=== PATIENT | female | born 1975 | race African-American/Black ===

== ENCOUNTER 2017-09-06 14:36 | Outpatient (CLI) | payer MEDICAID ==
--- NOTE | 2017-09-10 13:22 | MMO ---
BILATERAL SCREENING MAMMOGRAM: Date: 09/06/17 HISTORY: Screening. COMPARISON: Mammograms from 2017 and 2013. TECHNIQUE: Bilateral screening CC and MLO mammograms, as well as cleavage view, performed. This patient's mammogram was interpreted with the assistance of computer-aided detection. FINDINGS: There are scattered fibroglandular densities. No suspicious mass, architectural distortion, or microc alcifications. There are benign calcifications in left breast. IMPRESSION: BIRADS 2: Benign Finding(s) Continued annual mammographic screening is recommended. POS: JAGURA
== END 2017-09-06 14:37 | disposition home or self-care (01) ==
LOC: SCSMAMMO 14:36
PROVIDERS: ATTEND Nurse Practitioner Family
DX: Z12.31 Encounter for screening mammogram for malignant neoplasm of breast (principal)
CPT/HCPCS: 77067

== ENCOUNTER 2019-08-24 07:07 | Observation (INO) | payer SELFPAY ==
[2019-08-24 08:00] LABS: #Eosinphils 0.1 thou/uL (0.0-0.7); #Lymphocytes 1.8 thou/uL (1.20-3.40); #Monocytes 0.5 thou/uL (0.11-0.59); #Neutrophils 6.1 thou/uL (1.40-6.50); %Basophils 0.5 % (0.0-1.0); %Eosinophils 1.2 % (0.0-10.0); %Lymphocytes 21.5 % (21.0-51.0); %Monocytes 5.5 % (0.0-10.0); %Neutrophils 71.3 % (42.0-75.0); Hemoglobin 13.5 g/dL (12.0-16.0); Mean Corpuscular HGB CONC 33.6 g/dL (32.0-36.0); Mean Corpuscular Hemoglobin 25.8 pg (27.0-31.0); Mean Corpuscular Volume 76.6 fL (78.0-98.0); Mean Platelet Volume 8.8 fL (7.4-10.4); Platelet Count 299 thou/uL (130-400); RBC Distribution Width 13.1 % (11.5-14.5); Red Blood Cell (RBC) Count 5.23 mill/uL (4.20-5.40); White Blood Cell (WBC) Count 8.5 thou/uL (4.8-10.8)
[2019-08-24 08:19] LABS: Acetaminophen Less than 6.0 mcg/mL (10.0-30.0); Alcohol Less than 10 mg/dL (Less than 10); Salicylate Less than 8.0 mg/dL (15.0-30.0)
[2019-08-24 08:21] LABS: ALT (SGPT) 7 U/L (8-55); AST (SGOT) 12 U/L (5-34); Albumin 3.7 g/dL (3.5-5.0); Alcohol Less than 10 mg/dL (Less than 10); Alkaline Phosphatase 55 U/L (40-110); Anion Gap 10 mmol/L (10-20); BUN (Urea Nitrogen) 7 mg/dL (7.0-18.7); Bilirubin, Total 0.9 mg/dL (0.2-1.2); Calc. Creatinine Clearance 0 mL/min (70-130); Calcium 9.1 mg/dL (7.8-10.44); Carbon Dioxide 24 mmol/L (22-29); Chloride 106 mmol/L (98-107); Estimated GFR-MDRD 86; Globulin 3.2 g/dL (2.4-3.5); Glucose 99 mg/dL (70-105); Potassium 3.4 mmol/L (3.5-5.1); Protein, Total 6.9 g/dL (6.0-8.3); Sodium 137 mmol/L (136-145)
[2019-08-24 08:27] LABS: Amphetamine Not Detected (NotDetected); Barbiturates Screen Not Detected (NotDetected); Benzodiazepine Screen Not Detected (NotDetected); Cocaine Metabolite Screen Not Detected (NotDetected); Medtox Control Line Valid? VALID (VALID); Medtox Reader # READER 1; Methadone Not Detected (NotDetected); Methamphetamine Not Detected (NotDetected); Opiate Screen Not Detected (NotDetected); Oxycodone Screen Not Detected (NotDetected); Phencyclidine (PCP) Not Detected (NotDetected); THC/Cannabinoid Screen Detected (NotDetected); Tricyclic Screen Not Detected (NotDetected)
[2019-08-24 09:20] LABS: BHCG - Serum Negative (NEGATIVE); Pregs Control Background? CLEAR/WHITE (CLR/WHITE); Pregs Control Bar Appear? YES (CONTROL BAR)
[2019-08-24 09:22] LABS: Bilirubin Negative (Negative); Blood, Urine Negative (Negative); Clarity Clear (Clear); Glucose, Urine (Dipstick) Normal (Negative); Ketone, Urine Negative (Negative); Leukocyte Negative Leu/uL (Negative); Nitrite Negative (Negative); Protein, Urine (Dipstick) Negative (Neg-Trace); Specific Gravity, Urine 1.013 (1.002-1.036); Urobilinogen Normal mg/dL (Less than 2); pH, Urine 6.5 (5.0-9.0)
--- NOTE | 2019-08-24 11:01 | HP ---
PRIMARY CARE PHYSICIAN: Unknown. CHIEF COMPLAINT: Altered mental status. HISTORY OF PRESENT ILLNESS: Ms. Patel is a 44-year-old female who has a history of hypertension, anxiety, and depression. She was found by her in the morning basically unresponsive and lethargic. There was an empty bottle of Flexeril at the bedside. And apparently there was what they call a suicide note. This was given to the police and the patient's called EMS and she was brought to the emergency room. It is assumed that she took a full bottle of Flexeril in the suicide attempt. Apparently, she was just recently according to the ER records and essentially no other history is obtainable. By the time I saw the patient, she is arousable, but lethargic. She is basically squirming around in the bed and will not answer any questions. Apparently, Poison Control was called and it was communicated that if she did in fact take the Flexeril that she would need to be monitored for at least 8 to 12 hours. No specific treatment was recommended with the exception of checking aspirin and acetaminophen repeat level in about 2 hours from the time of her current presentation. REVIEW OF SYSTEMS: Unobtainable due to the patient being confused. PAST MEDICAL HISTORY: Taken from the emergency room records and includes hypertension, anxiety, depression, bipolar disorder, and schizophrenia. PAST SURGICAL HISTORY: It is noted in the ER records that she has had a hysterectomy. ALLERGIES: TO BACTRIM AND STEROIDS. FAMILY HISTORY: Unobtainable. SOCIAL HISTORY: Also unobtainable other than she is apparently recently . CURRENT MEDICATIONS: Taken from the ER records includes cyclobenzaprine as well as hydrochlorothiazide 50 mg daily. PHYSICAL EXAMINATION: GENERAL: She is bit lethargic and drowsy. She is well developed and well nourished. VITAL SIGNS: Blood pressure was 163/110, heart rate 68, respiratory rate of 12, and temperature is 99.1. HEENT: Her pupils are reactive, though she currently has a mask on in place. NECK: There is no adenopathy, no bruits. LUNGS: Essentially clear to auscultation. There is no wheezing, no rales, no rhonchi. CARDIOVASCULAR: She has a normal S1 and S2. There is no S3 or S4. No murmurs, clicks, or rubs. ABDOMEN: Obese, soft, nontender, and nondistended. Positive for bowel sounds. No rebound or guarding. EXTREMITIES: There is no edema, no redness, no erythema. NEUROLOGIC: She is essentially moving all extremities. LABORATORY RESULTS: White blood cell count is 8.5, hemoglobin 13.5, hematocrit is 40, and platelet count was 299. Sodium 137, potassium 3.4, chloride is 106, CO2 is 24, BUN is 7, creatinine 0.86, and glucose is 99. Urinalysis was essentially negative and urine drug screen was positive for cannabinoids. The aspirin level was 8 and Tylenol level was less than 6. ASSESSMENT: This is a 44-year-old female who presents to the ER with some altered mental status presumably in the suicide attempt due to an overdose of Flexeril. She will be placed in observation. We will place her on maintenance IV fluids. We will place her on telemetry monitoring in case there is some evidence of ectopy and re-evaluate her in the next 12 to 24 hours and hopefully get some additional history at that time. And also we will consult [facility] once she is medically cleared. Job ID: [id number]
[2019-08-24] MEDS ORDERED: Ondansetron ODT 4 MG TAB PO PRN (11:44)
[2019-08-24] MEDS ORDERED: Ondansetron PF 4 MG/2 ML Vial IVP PRN (11:44)
[2019-08-24] MEDS ORDERED: hydrALAZINE 20 MG/ML VIAL SLOW IVP PRN (11:44)
[2019-08-24 12:13] LABS: Acetaminophen Less than 6.0 mcg/mL (10.0-30.0); Salicylate Less than 8.0 mg/dL (15.0-30.0)
[2019-08-24 17:14] LABS: Acetaminophen Less than 6.0 mcg/mL (10.0-30.0); Salicylate Less than 8.0 mg/dL (15.0-30.0)
[2019-08-24] MEDS: Sodium Chloride 0.9% 1,000 ML IV SCH (17:23)
[2019-08-25 04:21] LABS: #Basophils 0.1 thou/uL (0.0-0.2); #Eosinphils 0.2 thou/uL (0.0-0.7); #Lymphocytes 2.6 thou/uL (1.20-3.40); #Monocytes 0.6 thou/uL (0.11-0.59); #Neutrophils 6.6 thou/uL (1.40-6.50); %Basophils 0.6 % (0.0-1.0); %Eosinophils 1.5 % (0.0-10.0); %Lymphocytes 26.3 % (21.0-51.0); %Monocytes 5.7 % (0.0-10.0); %Neutrophils 65.8 % (42.0-75.0); Hemoglobin 12.6 g/dL (12.0-16.0); Mean Corpuscular HGB CONC 33.7 g/dL (32.0-36.0); Mean Corpuscular Hemoglobin 25.9 pg (27.0-31.0); Mean Corpuscular Volume 77.1 fL (78.0-98.0); Mean Platelet Volume 10.1 fL (7.4-10.4); Platelet Count 255 thou/uL (130-400); RBC Distribution Width 13.3 % (11.5-14.5); Red Blood Cell (RBC) Count 4.86 mill/uL (4.20-5.40)
[2019-08-25 04:48] LABS: Anion Gap 10 mmol/L (10-20); BUN (Urea Nitrogen) 9 mg/dL (7.0-18.7); Calc. Creatinine Clearance 107 mL/min (70-130); Calcium 8.5 mg/dL (7.8-10.44); Carbon Dioxide 26 mmol/L (22-29); Chloride 108 mmol/L (98-107); Estimated GFR-MDRD 88; Glucose 95 mg/dL (70-105); Potassium 3.9 mmol/L (3.5-5.1); Sodium 140 mmol/L (136-145)
[2019-08-25] MEDS: Sodium Chloride 0.9% 1,000 ML IV SCH (06:34)
[2019-08-25 06:37] VITALS: BMI 29.6
[2019-08-25] MEDS ORDERED: Enoxaparin Sodium 40 MG/0.4 ML SYRINGE SC SCH (09:00)
[2019-08-25 12:19] LABS: Acetaminophen Less than 6.0 mcg/mL (10.0-30.0); Alcohol Less than 10 mg/dL (Less than 10); Salicylate Less than 8.0 mg/dL (15.0-30.0)
[2019-08-25] MEDS ORDERED: Acetaminophen 325 MG TAB PO PRN (13:05)
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
[2019-08-25] MEDS: Gabapentin 300 MG CAP PO SCH ×2 (15:52→21:40)
[2019-08-25] MEDS ORDERED: LURASIDONE HCL 40 MG PO SCH (21:00)
[2019-08-25] MEDS ORDERED: busPIRone HCl 10 MG TAB PO SCH (21:00)
[2019-08-26 02:22] VITALS: BP 147/82; TEMP 98.1
[2019-08-26] MEDS ORDERED: Hydrochlorothiazide 25 MG TAB PO SCH (09:00)
[2019-08-26] MEDS ORDERED: Atomoxetine Hcl 40 MG PO SCH ×2 (09:00)
[2019-08-26] MEDS ORDERED: Bupropion 150 MG SR TAB PO SCH (09:00)
--- NOTE | 2019-09-02 17:01 | EKG ---
Test Reason : Blood Pressure : / mmHG Vent. Rate : 076 BPM Atrial Rate : 076 BPM P-R Int : 182 ms QRS Dur : 090 ms QT Int : 394 ms P-R-T Axes : 035 017 023 degrees QTc Int : 443 ms Normal sinus rhythm Septal infarct , age undetermined Abnormal ECG Confirmed by RENE BABIN ([id number]), news assignment editor BOOGIE QUICK ([id number]) on 09/02/2019 5:00:36 PM Referred By: Confirmed By:RENE BABIN
== END 2019-08-26 00:55 | disposition short-term general hospital (02) ==
LOC: ERS 07:07 → T4-B 11:36 → 2NO 12:33
PROVIDERS: ADMIT Internal Medicine; ATTEND Internal Medicine
DX: T48.1X2A Poisoning by skeletal muscle relaxants [neuromuscular blocking agents], intentional self-harm, initial encounter (principal); R41.82 Altered mental status, unspecified; F31.9 Bipolar disorder, unspecified; I10 Essential (primary) hypertension; F41.9 Anxiety disorder, unspecified; F20.9 Schizophrenia, unspecified; Z79.899 Other long term (current) drug therapy; Z88.2 Allergy status to sulfonamides; Z88.8 Allergy status to other drugs, medicaments and biological substances
CPT/HCPCS: 36415; 51701; 80048; 80053; 80306; 80307; 81003; 84703; 85025; 93005; 96360; 96361; G0378

== ENCOUNTER 2019-11-05 10:36 | Emergency (ER) | payer SELFPAY ==
[2019-11-05] MEDS ORDERED: Acetaminophen 500 MG TAB ONE (11:13)
[2019-11-05] MEDS ORDERED: Cyclobenzaprine 10 MG TAB ONE (11:13)
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
== END 2019-11-05 13:06 | disposition home or self-care (01) ==
LOC: ERS 10:36
DX: M54.2 Cervicalgia (principal); M54.5 Low back pain; R20.2 Paresthesia of skin; I10 Essential (primary) hypertension; F41.9 Anxiety disorder, unspecified; F31.9 Bipolar disorder, unspecified; F20.9 Schizophrenia, unspecified; V43.62XA Car passenger injured in collision with other type car in traffic accident, initial encounter
CPT/HCPCS: 70450; 72100; 72125

== ENCOUNTER 2019-12-09 06:45 | Inpatient (IN) | payer OTHER, SELFPAY ==
[2019-12-09 07:54] LABS: Bilirubin Negative (Negative); Blood, Urine Negative (Negative); Clarity Turbid (Clear); Glucose, Urine (Dipstick) Normal (Negative); Ketone, Urine Negative (Negative); Leukocyte Negative Leu/uL (Negative); Nitrite Negative (Negative); Protein, Urine (Dipstick) Negative (Neg-Trace); Specific Gravity, Urine 1.013 (1.002-1.036); Urobilinogen Normal mg/dL (Less than 2); pH, Urine 6.5 (5.0-9.0)
[2019-12-09 08:02] LABS: Amphetamine Not Detected (NotDetected); Barbiturates Screen Not Detected (NotDetected); Benzodiazepine Screen Not Detected (NotDetected); Cocaine Metabolite Screen Not Detected (NotDetected); Medtox Control Line Valid? VALID (VALID); Medtox Reader # READER 4; Methadone Not Detected (NotDetected); Methamphetamine Not Detected (NotDetected); Opiate Screen Detected (NotDetected); Oxycodone Screen Not Detected (NotDetected); Phencyclidine (PCP) Not Detected (NotDetected); THC/Cannabinoid Screen Not Detected (NotDetected); Tricyclic Screen Not Detected (NotDetected)
[2019-12-09 08:05] LABS: #Eosinphils 0.1 thou/uL (0.0-0.7); #Lymphocytes 1.8 thou/uL (1.20-3.40); #Monocytes 0.6 thou/uL (0.11-0.59); #Neutrophils 6.5 thou/uL (1.40-6.50); %Basophils 0.3 % (0.0-1.0); %Eosinophils 1.5 % (0.0-10.0); %Lymphocytes 19.9 % (21.0-51.0); %Monocytes 6.4 % (0.0-10.0); %Neutrophils 71.9 % (42.0-75.0); Hemoglobin 13.7 g/dL (12.0-16.0); Mean Corpuscular HGB CONC 33.4 g/dL (32.0-36.0); Mean Corpuscular Hemoglobin 25.8 pg (27.0-31.0); Mean Corpuscular Volume 77.2 fL (78.0-98.0); Mean Platelet Volume 8.3 fL (7.4-10.4); Platelet Count 270 thou/uL (130-400); RBC Distribution Width 12.6 % (11.5-14.5); Red Blood Cell (RBC) Count 5.32 mill/uL (4.20-5.40)
[2019-12-09 08:10] LABS: BHCG - Serum Negative (NEGATIVE); Pregs Control Background? CLEAR/WHITE (CLR/WHITE); Pregs Control Bar Appear? YES (CONTROL BAR)
[2019-12-09 08:25] LABS: Acetaminophen Less than 6.0 mcg/mL (10.0-30.0); Alcohol Less than 10 mg/dL (Less than 10); Salicylate Less than 8.0 mg/dL (15.0-30.0)
--- NOTE | 2019-12-09 11:38 | PDOC.HHP ---
Hospitalist HPI - History of Present Illness intentional overdose Hospitalist Results - Labs Result Diagrams: 12/09/19 07:50 Lab results: WBC 9.0 thou/uL (4.8-10.8) 12/09/19 07:50 Hgb 13.7 g/dL (12.0-16.0) 12/09/19 07:50 Hct 41.0 % (36.0-47.0) 12/09/19 07:50 MCV 77.2 fL (78.0-98.0) L 12/09/19 07:50 Plt Count 270 thou/uL (130-400) 12/09/19 07:50 Neutrophils % 71.9 % (42.0-75.0) 12/09/19 07:50 Creatine Kinase 96 U/L (29-168) 12/09/19 07:50 Urine Ketones Negative mg/dL (Negative) 12/09/19 07:12 Urine Blood Negative (Negative) 12/09/19 07:12 Urine Nitrite Negative (Negative) 12/09/19 07:12 Ur Leukocyte Esterase Negative Kb/uL (Negative) 12/09/19 07:12
[2019-12-09 12:45] LABS: ALT (SGPT) 7 U/L (8-55); AST (SGOT) 15 U/L (5-34); Albumin 3.6 g/dL (3.5-5.0); Alkaline Phosphatase 53 U/L (40-110); Anion Gap 17 mmol/L (10-20); BUN (Urea Nitrogen) 8 mg/dL (7.0-18.7); Bilirubin, Total 1.2 mg/dL (0.2-1.2); Calc. Creatinine Clearance 0 mL/min (70-130); Calcium 8.8 mg/dL (7.8-10.44); Carbon Dioxide 20 mmol/L (22-29); Chloride 105 mmol/L (98-107); Estimated GFR-MDRD 88; Globulin 3.5 g/dL (2.4-3.5); Glucose 70 mg/dL (70-105); Potassium 3.7 mmol/L (3.5-5.1); Protein, Total 7.1 g/dL (6.0-8.3); Sodium 138 mmol/L (136-145)
[2019-12-09] MEDS ORDERED: Sodium Chloride 0.9% 1,000 ML IV SCH (13:15)
--- NOTE | 2019-12-09 17:11 | HP ---
PCP: Unknown. CHIEF COMPLAINT: Intentional overdose. HISTORY OF PRESENT ILLNESS: The patient is a 44-year-old female with past medical history of hypertension, anxiety, depression, and suicide attempt. This morning she sent text messages to her friends stating that she wanted to end her life. She was later found unresponsive by family with pill bottles open next to her. What is suspected as her taking was an unknown amount of Abilify, morphine and trazodone. Around 6 a.m., EMS gave her 0.5 mg of Narcan IV and placed a nasal trumpet. The patient had a previous attempt of suicide in August with Flexeril. When I saw her in the ER, she was arousable to painful stimuli, but very lethargic still. Poison Control was called and notified. Poison Control stated that morphine and Abilify can cause [employer] depression and to monitor her airway management. They stated to try Narcan if necessary and order serial labs such as Tylenol, aspirin, CMP, CBC, alcohol and EKG. They also stated to monitor her for 12 hours minimally. Today in the ER, they completed lab work and the urinalysis. She was administered no medications. PAST MEDICAL HISTORY: Hypertension, anxiety, depression, bipolar, schizophrenia. PAST SURGICAL HISTORY: Hysterectomy. ALLERGIES: BACTRIM, CORTISONE, AND SULFA. MEDICATIONS: Unable to obtain at this time. SOCIAL HISTORY: The patient lives at home with her . She has no smoking, alcohol, or drug history. FAMILY HISTORY: Noncontributory at this time. REVIEW OF SYSTEMS: Unable to be obtained at this time due to patient's mental status. PHYSICAL EXAMINATION: VITAL SIGNS: Blood pressure 122/83, pulse 67, respiratory rate 20, temperature 98, O2 saturation 100% on room air. GENERAL: Somnolent, afebrile. HEENT: Head atraumatic, normocephalic. Eyes, extraocular movements intact, PERRLA. RESPIRATORY: Clear to auscultation bilaterally. No rhonchi, no wheezes, no rales. CARDIOVASCULAR: Regular rate and rhythm. No murmurs, rubs, no gallops. ABDOMEN: Nontender. No distention. Bowel sounds normal. EXTREMITIES: No cyanosis, no clubbing, no edema. NEUROLOGIC: Somnolent, protecting airway. Moves all four extremities to painful stimuli. PSYCHIATRIC: Reported suicidal ideation with overdose. LABORATORY DATA: EKG shows sinus rhythm, 70 beats per minute. No ectopic beats. White blood cell , hemoglobin 13.7, hematocrit 41.0. Sodium 138, potassium 3.7, chloride 105, carbon dioxide 20, creatinine 0.84, GFR 88, glucose 70, TSH 1.3750. Serum negative. Toxicology, opioids detected. Plasma alcohol less than 10. IMPRESSION AND PLAN: The patient presented to the ER with altered mental status after presumably a suicide attempt through an overdose of Abilify, morphine, and trazodone. She is now in observation status. She will be on maintenance IV fluids. She is to remain on telemetry monitoring throughout her stay. We revaluate she can be medically cleared and we can contact [facility] once she is cleared. Job ID: [id number]
[2019-12-09] MEDS ORDERED: D5 1/2 NS w/20 mEq KCL 1,000 ML IV SCH (17:15)
[2019-12-09] MEDS: D5 1/2 NS w/20 mEq KCL 1,000 ML IV SCH (21:26)
[2019-12-10 04:15] LABS: #Eosinphils 0.1 thou/uL (0.0-0.7); #Lymphocytes 1.3 thou/uL (1.20-3.40); #Monocytes 0.9 thou/uL (0.11-0.59); #Neutrophils 9.6 thou/uL (1.40-6.50); %Basophils 0.3 % (0.0-1.0); %Eosinophils 0.5 % (0.0-10.0); %Lymphocytes 11.1 % (21.0-51.0); %Monocytes 7.2 % (0.0-10.0); %Neutrophils 80.9 % (42.0-75.0); Hemoglobin 12.9 g/dL (12.0-16.0); Mean Corpuscular HGB CONC 33.7 g/dL (32.0-36.0); Mean Corpuscular Hemoglobin 26.2 pg (27.0-31.0); Mean Corpuscular Volume 77.8 fL (78.0-98.0); Mean Platelet Volume 8.3 fL (7.4-10.4); Platelet Count 283 thou/uL (130-400); RBC Distribution Width 12.9 % (11.5-14.5); Red Blood Cell (RBC) Count 4.91 mill/uL (4.20-5.40); White Blood Cell (WBC) Count 11.9 thou/uL (4.8-10.8)
[2019-12-10 04:34] LABS: Anion Gap 11 mmol/L (10-20); BUN (Urea Nitrogen) 8 mg/dL (7.0-18.7); Calc. Creatinine Clearance 91 mL/min (70-130); Calcium 8.5 mg/dL (7.8-10.44); Carbon Dioxide 26 mmol/L (22-29); Chloride 105 mmol/L (98-107); Estimated GFR-MDRD 73; Glucose 135 mg/dL (70-105); Potassium 3.4 mmol/L (3.5-5.1); Sodium 139 mmol/L (136-145)
[2019-12-10] MEDS: D5 1/2 NS w/20 mEq KCL 1,000 ML IV SCH ×3 (05:31→22:51)
[2019-12-10 11:13] LABS: SARS-CoV-2 MS2 Positive; SARS-CoV-2 N Gene Negative; SARS-CoV-2 S Gene Negative; SARS-CoV-2 by NAA Not Detected (NotDetected); SARS-CoV-2 orf1ab Negative
--- NOTE | 2019-12-10 16:59 | PDOC.HOSPP ---
- Subjective Encounter Date: 12/10/19 Subjective: The patient is still sleeping. Vitals are stable. - Objective Vital Signs & Weight: Vital Signs (12 hours) Temp Pulse Resp BP BP Pulse Ox 12/10/19 15:35 97.5 F L 74 21 H 116/62 99 12/10/19 11:39 98.4 F 70 20 111/64 98 12/10/19 10:15 98.5 F 12/10/19 09:06 98.2 F 78 21 H 125/64 96 Weight Weight 179 lb 14.4 oz I&O: 12/09/19 12/10/19 12/11/19 06:59 06:59 06:59 Intake Total 1100 Output Total 1600 Balance -500 Result Diagrams: 12/10/19 03:53 12/10/19 03:53 Hospitalist ROS - Medication Medications: Active Medications Generic Name Dose Route Start Last Admin Trade Name Freq PRN Reason Stop Dose Admin Potassium Chloride/Dextrose/Sod Cl 1,000 mls @ 125 mls/hr 12/09/19 20:56 12/10/19 15:38 D5 1/2 Ns W/20 Meq Kcl IV 1,000 mls .Q8H GARIMA Administration - Exam General Appearance: awake alert ENT: normocephalic atraumatic Neck: supple, no JVD Heart: RRR Respiratory: normal chest expansion, no tachypnea Extremities: no cyanosis, no clubbing Hosp A/P (1) Bipolar disorder Code(s): F31.9 - BIPOLAR DISORDER, UNSPECIFIED Status: Acute (2) Depression Code(s): F32.9 - MAJOR DEPRESSIVE DISORDER, SINGLE EPISODE, UNSPECIFIED Status: Acute (3) Drug overdose, intentional Code(s): T50.902A - POISONING BY UNSP DRUG/MEDS/BIOL SUBST, SELF-HARM, INIT Status: Acute (4) Suicide attempt Status: Acute - Plan Vital sings stable. No evidence of liver or renal dysfunction. Pt is still somnulent. [facility] evaluation once the patient is back to her baseline.
[2019-12-11] MEDS: D5 1/2 NS w/20 mEq KCL 1,000 ML IV SCH ×4 (06:10→22:32)
--- NOTE | 2019-12-11 14:53 | PDOC.HOSPP ---
- Subjective Encounter Date: 12/11/19 Subjective: Appears to be sleeping again. She did open her eyes when I first talked to her but then refused to respond. - Objective Vital Signs & Weight: Vital Signs (12 hours) Temp Pulse Resp BP BP Pulse Ox 12/11/19 11:52 98.6 F 77 20 151/80 H 91 L 12/11/19 07:03 98.4 F 78 21 H 158/85 H 91 L 12/11/19 03:12 99.4 F 83 24 H 153/85 H 97 Weight Weight 179 lb 14.4 oz I&O: 12/10/19 12/11/19 12/12/19 06:59 06:59 06:59 Intake Total 1100 2400 Output Total 1600 1250 Balance -500 1150 Result Diagrams: 12/10/19 03:53 12/10/19 03:53 Hospitalist ROS - Medication Medications: Active Medications Generic Name Dose Route Start Last Admin Trade Name Freq PRN Reason Stop Dose Admin Potassium Chloride/Dextrose/Sod Cl 1,000 mls @ 125 mls/hr 12/09/19 20:56 12/11/19 14:37 D5 1/2 Ns W/20 Meq Kcl IV 1,000 mls .Q8H GARIMA Administration - Exam General Appearance: awake alert ENT: normocephalic atraumatic Neck: supple, no JVD Respiratory: normal chest expansion, no tachypnea Gastrointestinal: soft, non-tender Hosp A/P (1) Bipolar disorder Code(s): F31.9 - BIPOLAR DISORDER, UNSPECIFIED Status: Acute (2) Depression Code(s): F32.9 - MAJOR DEPRESSIVE DISORDER, SINGLE EPISODE, UNSPECIFIED Status: Acute (3) Drug overdose, intentional Code(s): T50.902A - POISONING BY UNSP DRUG/MEDS/BIOL SUBST, SELF-HARM, INIT Status: Acute (4) Suicide attempt Status: Acute - Plan Vital sings stable. No evidence of liver or renal dysfunction. I am suspecting that the patient is not actually sleeping but rather refused to communicate. We will check ABG. If the results are unremarkable, she will likely be ready for discharge. MR evaluation once the patient is back to her baseline.
[2019-12-11] MEDS: Enoxaparin Sodium 40 MG/0.4 ML SYRINGE SC SCH (20:00)
[2019-12-12 09:37] LABS: Actual Bicarbonate (HCO3a) 23.7 mEq/L (22-28); CO2 Tension 35.3 mmHg (35.0-45.0); Carboxyhemoglobin (COHb) 0.3 gm% (0.0-3.0); Hemoglobin (Hb) 12.4 g/dL (12.0-16.0); O2 Tension (PaO2), arterial 74.6 mmHg (80.0-100.0); Potassium - ABG Lab 3.68 mmol/L (3.70-5.30); pH, Arterial 7.44 (7.35-7.45)
[2019-12-12 09:38] LABS: ALV-art Gradient 31.005 mmHg (0-20); Puncture Site RRA
[2019-12-12 09:49] LABS: #Eosinphils 0.2 thou/uL (0.0-0.7); #Lymphocytes 2.5 thou/uL (1.20-3.40); #Monocytes 0.9 thou/uL (0.11-0.59); #Neutrophils 8.8 thou/uL (1.40-6.50); %Basophils 0.4 % (0.0-1.0); %Eosinophils 1.8 % (0.0-10.0); %Monocytes 7.3 % (0.0-10.0); %Neutrophils 70.6 % (42.0-75.0); Hemoglobin 11.9 g/dL (12.0-16.0); Mean Corpuscular HGB CONC 33.3 g/dL (32.0-36.0); Mean Corpuscular Hemoglobin 26.3 pg (27.0-31.0); Mean Platelet Volume 8.7 fL (7.4-10.4); Platelet Count 249 thou/uL (130-400); RBC Distribution Width 12.4 % (11.5-14.5); Red Blood Cell (RBC) Count 4.53 mill/uL (4.20-5.40); White Blood Cell (WBC) Count 12.5 thou/uL (4.8-10.8)
[2019-12-12 10:09] LABS: ALT (SGPT) 9 U/L (8-55); AST (SGOT) 23 U/L (5-34); Alkaline Phosphatase 42 U/L (40-110); Anion Gap 9 mmol/L (10-20); BUN (Urea Nitrogen) 8 mg/dL (7.0-18.7); Bilirubin, Total 0.9 mg/dL (0.2-1.2); Calc. Creatinine Clearance 109 mL/min (70-130); Calcium 8.2 mg/dL (7.8-10.44); Carbon Dioxide 25 mmol/L (22-29); Chloride 111 mmol/L (98-107); Estimated GFR-MDRD 87; Glucose 106 mg/dL (70-105); Potassium 3.7 mmol/L (3.5-5.1); Sodium 141 mmol/L (136-145)
--- NOTE | 2019-12-12 12:29 | PDOC.HOSPP ---
- Subjective Encounter Date: 12/12/19 Subjective: The patient remains somnolent for most of the day. She was able to wake up for less than a minute when I was talking with her in the room. She is confused. - Objective Vital Signs & Weight: Vital Signs (12 hours) Temp Pulse Resp BP Pulse Ox 12/12/19 07:25 99.5 F 73 16 132/83 95 12/12/19 04:00 99.4 F 73 16 130/78 94 L Weight Weight 184 lb 1.6 oz I&O: 12/11/19 12/12/19 12/13/19 06:59 06:59 06:59 Intake Total 2400 2700 Output Total 1250 1500 Balance 1150 1200 Result Diagrams: 12/12/19 09:29 12/12/19 09:30 Hospitalist ROS - Medication Medications: Active Medications Generic Name Dose Route Start Last Admin Trade Name Freq PRN Reason Stop Dose Admin Enoxaparin Sodium 40 mg 12/11/19 21:00 12/11/19 20:00 Enoxaparin Sodium 40 Mg/0.4 Ml Syringe SC 40 mg 2100 GARIMA Administration Potassium Chloride/Dextrose/Sod Cl 1,000 mls @ 125 mls/hr 12/09/19 20:56 12/11/19 22:32 D5 1/2 Ns W/20 Meq Kcl IV 1,000 mls .Q8H GARIMA Administration - Exam General Appearance: awake alert ENT: normocephalic atraumatic Neck: supple, no JVD Heart: RRR Respiratory: CTAB, normal chest expansion, no tachypnea Extremities: no cyanosis, no clubbing Hosp A/P (1) Bipolar disorder Code(s): F31.9 - BIPOLAR DISORDER, UNSPECIFIED Status: Acute (2) Depression Code(s): F32.9 - MAJOR DEPRESSIVE DISORDER, SINGLE EPISODE, UNSPECIFIED Status: Acute (3) Drug overdose, intentional Code(s): T50.902A - POISONING BY UNSP DRUG/MEDS/BIOL SUBST, SELF-HARM, INIT Status: Acute (4) Suicide attempt Status: Acute - Plan Vital sings stable. No evidence of liver or renal dysfunction. Check CBC, CMP, ABG, CT scan of the head without contrast. Continue to monitor patient's condition.
[2019-12-12] MEDS: D5 1/2 NS w/20 mEq KCL 1,000 ML IV SCH ×2 (13:58→19:45)
[2019-12-12] MEDS: Enoxaparin Sodium 40 MG/0.4 ML SYRINGE SC SCH (19:45)
[2019-12-13] MEDS: D5 1/2 NS w/20 mEq KCL 1,000 ML IV SCH ×3 (05:40→19:50)
--- NOTE | 2019-12-13 09:29 | CT ---
CT HEAD WITHOUT IV CONTRAST COMPARISON: 11/05/2019 HISTORY: Altered mental status. TECHNIQUE: Axial CT imaging at 5 mm intervals from vertex through skull base without contrast FINDINGS: There is no evidence of an acute infarction, hemorrhage, mass effect, or midline shift. The ventricul ar system is normal in size, shape, and position. Skull base has a normal CT appearance. There is opacification of multiple ethmoidal air cells bilaterally with mucosal thickening seen in ea ch maxillary antrum as well as each sphenoid sinus. Mastoid air cells are clear. Osseous structures appear intact. IMPRESSION: 1. No acute intracranial abnormality demonstrated. 2. Sinus disease as above.
[2019-12-13] MEDS ORDERED: Acetaminophen 325 MG TAB PO PRN (10:56)
[2019-12-13] MEDS ORDERED: Ondansetron PF 4 MG/2 ML Vial IVP PRN (10:56)
[2019-12-13] MEDS ORDERED: Calcium Carbonate 500 MG ChewTAB PO PRN (10:56)
[2019-12-13] MEDS ORDERED: Ondansetron ODT 4 MG TAB PO PRN (10:56)
[2019-12-13 11:13] LABS: #Basophils 0.1 thou/uL (0.0-0.2); #Eosinphils 0.2 thou/uL (0.0-0.7); #Lymphocytes 1.8 thou/uL (1.20-3.40); #Monocytes 0.5 thou/uL (0.11-0.59); %Basophils 0.8 % (0.0-1.0); %Eosinophils 2.4 % (0.0-10.0); %Lymphocytes 18.7 % (21.0-51.0); %Monocytes 5.7 % (0.0-10.0); %Neutrophils 72.5 % (42.0-75.0); Mean Corpuscular HGB CONC 33.4 g/dL (32.0-36.0); Mean Corpuscular Hemoglobin 26.3 pg (27.0-31.0); Mean Corpuscular Volume 78.9 fL (78.0-98.0); Platelet Count 291 thou/uL (130-400); RBC Distribution Width 12.4 % (11.5-14.5); Red Blood Cell (RBC) Count 4.56 mill/uL (4.20-5.40); White Blood Cell (WBC) Count 9.6 thou/uL (4.8-10.8)
[2019-12-13 11:31] LABS: ALT (SGPT) 8 U/L (8-55); AST (SGOT) 17 U/L (5-34); Alkaline Phosphatase 40 U/L (40-110); Anion Gap 12 mmol/L (10-20); BUN (Urea Nitrogen) 8 mg/dL (7.0-18.7); Bilirubin, Total 0.7 mg/dL (0.2-1.2); Calc. Creatinine Clearance 114 mL/min (70-130); Calcium 8.5 mg/dL (7.8-10.44); Carbon Dioxide 23 mmol/L (22-29); Chloride 111 mmol/L (98-107); Estimated GFR-MDRD 88; Glucose 91 mg/dL (70-105); Magnesium 1.8 mg/dL (1.6-2.6); Sodium 142 mmol/L (136-145)
[2019-12-13 11:52] VITALS: BMI 31.6
[2019-12-13] MEDS ORDERED: Magnesium 2 GM/50 ML 2 GM in Sodium Chloride 0.9% 100 ML IVPB SCH (12:15)
--- NOTE | 2019-12-13 14:56 | PDOC.HOSPP ---
- Subjective Encounter Date: 12/13/19 Encounter Time: 10:00 Subjective: Patient seen and examined for encephalopathy/overdose. Mentation gradually improving. No seizures, chest pain, nausea, vomiting or new focal deficit reported. - Objective Vital Signs & Weight: Vital Signs (12 hours) Temp Pulse Resp BP Pulse Ox 12/13/19 11:23 97.8 F 58 L 16 144/81 H 96 12/13/19 07:10 98.6 F 61 16 110/63 99 12/13/19 05:00 98.1 F 62 14 115/69 95 Weight Admit Weight 179 lb 14.4 oz Weight 190 lb I&O: 12/12/19 12/13/19 12/14/19 06:59 06:59 06:59 Intake Total 2700 4347 Output Total 1500 1750 Balance 1200 2597 Result Diagrams: 12/13/19 11:01 12/13/19 11:01 Additional Labs: Abnormal Lab Results - Last 48 hrs 12/12/19 09:12: ABG pO2 74.6 L, ABG O2 Content 16.6 L, ABG Deoxyhemoglobin 4.2 H, A-a O2 Gradient 31.005 H, Potassium 3.68 L, Chloride 110 H 12/12/19 09:29: WBC 12.5 H, Hgb 11.9 L, Hct 35.8 L, MCH 26.3 L, Lymphocytes % 20.0 L, Neutrophils # 8.8 H, Monocytes # 0.9 H 12/12/19 09:30: Chloride 111 H, Anion Gap 9 L, Albumin 3.0 L, Albumin/Globulin Ratio 1.0 L 12/13/19 11:01: Chloride 111 H, Albumin 3.0 L, Albumin/Globulin Ratio 1.0 L 12/13/19 11:01: MCH 26.3 L, Lymphocytes % 18.7 L, Neutrophils # 7.0 H Radiology Reviewed by me: Yes (CT brainnegative for acute CVA) EKG Reviewed by me: Yes (Sinus rhythm on telemetry) Hospitalist ROS - Review of Systems Cardiovascular: denies: chest pain, palpitations, orthopnea, paroxysmal noc. dyspnea, edema, light headedness, other Gastrointestinal: denies: nausea, vomiting, abdominal pain, diarrhea, constipation, melena, hematochezia, other - Medication Medications: Active Medications Generic Name Dose Route Start Last Admin Trade Name Freq PRN Reason Stop Dose Admin Enoxaparin Sodium 40 mg 12/11/19 21:00 12/12/19 19:45 Enoxaparin Sodium 40 Mg/0.4 Ml Syringe SC 40 mg 2100 GARIMA Administration Potassium Chloride/Dextrose/Sod Cl 1,000 mls @ 125 mls/hr 12/09/19 20:56 12/13/19 05:40 D5 1/2 Ns W/20 Meq Kcl IV Not Given .Q8H GARIMA Magnesium Sulfate 2 gm/ Sodium 150 mls @ 150 mls/hr 12/13/19 12:15 12/13/19 12:31 Chloride IVPB 12/13/19 15:00 150 mls NOW GARIMA Administration - Exam General Appearance: NAD Neck: supple, no JVD Heart: RRR, no gallops, no rubs, normal peripheral pulses Respiratory: CTAB, no rales, no ronchi, normal chest expansion Gastrointestinal: soft, non-tender, non-distended, normal bowel sounds Extremities: no cyanosis, no clubbing, no edema Neurological: no new deficit Psychiatric: A&O x 3, somnolent Hosp A/P - Plan DVT proph w/lovenox, DVT proph w/SCDs Toxic metabolic encephalopathyPOAdue to drug overdose Anxiety with depression Bipolar disorder Obesity with a BMI of 31.6 Hypokalemia/hypomagnesemia CKD stage II Plan: [facility] could not assess her today since patient is still somnolent. Will reat tempt tomorrow. Recent CT scan of the brain was negative. ABGs from 2 days ago reviewed. Patient is easily arousable however still somnolent. Will continuously monitor O2 saturation. Continue sitter at the bedside. Start oral diet with suicide precautions. Continue IV fluids. Recheck labs in a.m. Replace magnesium
[2019-12-13] MEDS: Senokot S 8.6-50 MG TAB PO SCH (19:50)
[2019-12-13] MEDS: Enoxaparin Sodium 40 MG/0.4 ML SYRINGE SC SCH (19:50)
[2019-12-13] MEDS: Famotidine 20 MG TAB PO SCH (19:50)
[2019-12-14 04:12] LABS: #Basophils 0.1 thou/uL (0.0-0.2); #Eosinphils 0.2 thou/uL (0.0-0.7); #Lymphocytes 2.8 thou/uL (1.20-3.40); #Monocytes 0.5 thou/uL (0.11-0.59); #Neutrophils 4.3 thou/uL (1.40-6.50); %Basophils 0.8 % (0.0-1.0); %Eosinophils 2.2 % (0.0-10.0); %Lymphocytes 35.9 % (21.0-51.0); %Monocytes 6.1 % (0.0-10.0); %Neutrophils 55.1 % (42.0-75.0); Hemoglobin 11.7 g/dL (12.0-16.0); Mean Corpuscular HGB CONC 32.8 g/dL (32.0-36.0); Mean Corpuscular Hemoglobin 25.9 pg (27.0-31.0); Mean Corpuscular Volume 78.7 fL (78.0-98.0); Mean Platelet Volume 9.9 fL (7.4-10.4); Platelet Count 274 thou/uL (130-400); RBC Distribution Width 12.5 % (11.5-14.5); Red Blood Cell (RBC) Count 4.53 mill/uL (4.20-5.40); White Blood Cell (WBC) Count 7.9 thou/uL (4.8-10.8)
[2019-12-14] MEDS: D5 1/2 NS w/20 mEq KCL 1,000 ML IV SCH ×2 (04:30→14:01)
[2019-12-14 04:35] LABS: ALT (SGPT) 9 U/L (8-55); AST (SGOT) 17 U/L (5-34); Albumin 2.9 g/dL (3.5-5.0); Alkaline Phosphatase 42 U/L (40-110); Anion Gap 11 mmol/L (10-20); BUN (Urea Nitrogen) 10 mg/dL (7.0-18.7); Bilirubin, Total 0.3 mg/dL (0.2-1.2); Calc. Creatinine Clearance 110 mL/min (70-130); Calcium 8.1 mg/dL (7.8-10.44); Carbon Dioxide 23 mmol/L (22-29); Chloride 110 mmol/L (98-107); Estimated GFR-MDRD 88; Glucose 108 mg/dL (70-105); Protein, Total 5.9 g/dL (6.0-8.3); Sodium 140 mmol/L (136-145)
[2019-12-14] MEDS: Famotidine 20 MG TAB PO SCH (08:54)
[2019-12-14] MEDS: Senokot S 8.6-50 MG TAB PO SCH (08:55)
[2019-12-14 12:39] VITALS: TEMP 97.6
[2019-12-14] MEDS ORDERED: Hydrochlorothiazide 25 MG TAB PO SCH (13:15)
[2019-12-14 14:00] VITALS: BP 151/84
--- NOTE | 2019-12-16 08:55 | DIS ---
DATE OF ADMISSION: 12/11/2019 DATE OF DISCHARGE: 12/14/2019 DISCHARGE DISPOSITION: Home. FOLLOWUP: 1. Follow up with [facility] in 1 week. 2. Follow up with [facility] as scheduled. Fall precaution with 24-hour supervision is recommended. DISCHARGE MEDICATIONS: Same as admission medication. The patient was seen and examined on the day of discharge. Denies any new complaints. No chest pain, shortness of breath, palpitations reported. The patient is awake, alert, and ambulated in the hallway with Physical Therapy. BRIEF HOSPITAL COURSE: The patient is a 44-year-old female, who presented to the emergency room after an intentional overdose. She took unknown amount of Abilify, morphine with trazodone. She was brought into the emergency room by EMS. She received Narcan by EMS and a nasal trumpet was placed. The patient remained lethargic most of the initial hospitalization. She was monitored on telemetry with suicide precautions and sitter. She was placed on IV fluids. Her mentation gradually improved. Her ABGs on 11 December showed pH 7.4 with pCO2 of 35.3, pO2 74.6 with bicarbonate of 23.7. Her urine drug screen was positive for opiates. COVID-19 testing was negative. She was evaluated by [facility] yesterday and an outpatient safety plan has been made. The patient; however, remained somnolent and was not stable for discharge after an [facility] evaluation yesterday. For this reason, she was monitored overnight. Today, she ambulated in the hallway with Physical Therapy. Her mentation is back to her baseline. She also had some electrolyte abnormalities, which were replaced. She will require a 24-hour supervision by her family at home. Fall precaution was emphasized. FINAL DIAGNOSES: 1. Toxic metabolic encephalopathy due to intentional drug overdose. 2. Anxiety with depression. The patient denies any suicidal ideation at the time of discharge. 3. Bipolar disorder. 4. Obesity with a BMI of 31.6. 5. Hypokalemia replaced. 6. Hypomagnesemia replaced. 7. Chronic kidney disease, stage 2. DIAGNOSTIC TESTS: TSH 1.37. CT scan of the brain was negative for acute findings. The patient understands the above plan of care. Job ID: [id number]
== END 2019-12-14 15:30 | disposition home or self-care (01) | DRG 917 ==
LOC: ERS 06:45 → ERHOLD 12:29 → 2NO 17:11 → OBSVTOIN 12-11 13:32
PROVIDERS: ADMIT Emergency Medicine; ATTEND Emergency Medicine
DX: T43.592A Poisoning by other antipsychotics and neuroleptics, intentional self-harm, initial encounter (principal); G92 Toxic encephalopathy; T40.2X2A Poisoning by other opioids, intentional self-harm, initial encounter; T43.212A Poisoning by selective serotonin and norepinephrine reuptake inhibitors, intentional self-harm, initial encounter; Z20.828 Contact with and (suspected) exposure to other viral communicable diseases; F41.8 Other specified anxiety disorders; F31.9 Bipolar disorder, unspecified; E66.9 Obesity, unspecified; E87.6 Hypokalemia; E83.42 Hypomagnesemia; N18.2 Chronic kidney disease, stage 2 (mild); I12.9 Hypertensive chronic kidney disease with stage 1 through stage 4 chronic kidney disease, or unspecified chronic kidney disease; F20.9 Schizophrenia, unspecified; Z68.31 Body mass index [BMI] 31.0-31.9, adult; Z90.710 Acquired absence of both cervix and uterus; Z88.1 Allergy status to other antibiotic agents; Z88.2 Allergy status to sulfonamides; Z88.8 Allergy status to other drugs, medicaments and biological substances; Z79.899 Other long term (current) drug therapy
CPT/HCPCS: 36415; 36416; 51701; 51798; 70450; 80048; 80053; 80306; 80307; 81003; 82140; 82550; 82805; 83735; 84100; 84443; 84703; 85025; 87635; 93005; 94760; G0378; J1650; J3475; J3480; J3490; U0003